=== PATIENT | female | born 1945 | race Caucasian/White ===

== ENCOUNTER 2017-03-05 10:42 | Inpatient (IN) | payer MEDICARE ==
[~2017-03-05] VITALS: Ht 157.5 cm; Wt 52.2 kg
[2017-03-05] MEDS ORDERED: Glucagon 1mg Inj IV ONE (11:00)
[2017-03-05] MEDS ORDERED: Calcium Gluconate 1gm/10ml vial IVP ONE (11:00)
[2017-03-05] MEDS ORDERED: AMLODIPINE BES2.5 MG ORAL (11:01)
[2017-03-05] MEDS ORDERED: ZOLOFT25 MG ORAL (11:01)
[2017-03-05] MEDS ORDERED: CARVEDILOL3.125 MG ORAL (11:01)
[2017-03-05 11:15] VITALS: BP 115/42
--- NOTE | 2017-03-05 11:38 | Diagnostic Imaging Report ---
Indication: Altered mental status Technique: Continuous helical CT scanning of the head was performed without intravenous contrast material. Axial and coronal 5 mm sections were generated. Dose: Total Dose Length Product - DLP [address] Dose Index - CTDIvol(s) 70.38 mGy. Automated exposure control was utilized for dose reduction. Comparison: None Findings: There is prominence of cortical sulci and the ventricular system. Periventricular low density is present. Focal low density is noted in the left lentiform nucleus and hodge radiata. There is no shift of midline structures. No abnormal extra-axial fluid collections are noted. There is no evidence of intracerebral bleeding. No other abnormal high or low density areas are noted within the brain. Impression: Atrophy. Chronic small vessel white matter ischemic change. 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 No definite acute abnormality. The CT scanner at [facility] is accredited by the [employer] and the scans are performed using protocols designed to limit radiation exposure to as low as reasonably achievable to attain images of sufficient resolution adequate for diagnostic evaluation.
[2017-03-05 11:44] LABS: APPEARANCE,URINE CLOUDY; BILIRUBIN, URINE NEGATIVE (NEGATIVE); COLOR,URINE PALE YELLOW; GLUCOSE, URINE (UA) NEGATIVE (NEGATIVE); KETONES,URINE NEGATIVE (NEGATIVE); LEUKOCYTE ESTERASE ,URINE 3+ (NEGATIVE); NITRITE,URINE NEGATIVE (NEGATIVE); PH,URINE 6 (4.5-8.0); PROTEIN,URINE 2+ (NEGATIVE); UROBILINOGEN,URINE NORMAL MG/DL (0.0-1.0)
[2017-03-05 11:52] LABS: EOSINOPHILS % (AUTO) 0.6 % (0.0-3.0); HEMATOCRIT 35.5 % (37.0-47.0); HEMOGLOBIN 11.6 G/DL (12.0-16.0); LYMPHOCYTES % (AUTO) 21.2 % (20.0-45.0); MEAN CORPUSCULAR VOLUME 88 FL (80-99); MONOCYTES % (AUTO) 5.2 % (1.0-10.0); NEUTROPHILS % (AUTO) 71.9 % (45.0-75.0); PLATELET COUNT 263 K/UL (150-450); RED BLOOD COUNT 4.02 M/UL (4.20-5.40); RED CELL DISTRIBUTION WIDTH 12.9 % (11.6-14.8); WHITE BLOOD COUNT 6.2 K/UL (4.8-10.8)
--- NOTE | 2017-03-05 12:00 | Diagnostic Imaging Report ---
Indication: Chest pain Technique: XRAY Chest 1v Comparison: None. Findings: The cardiomediastinal silhouette is normal. The lungs are clear. There is no evidence of pleural fluid. The bones are unremarkable. Impression: Normal chest.
[2017-03-05 12:12] LABS: ANION GAP 7 mmol/L (5-15); BLOOD UREA NITROGEN 22 mg/dL (7-18); CALCIUM 9.2 MG/DL (8.5-10.1); CARBON DIOXIDE 31 MMOL/L (21-32); CHLORIDE 100 MMOL/L (98-107); CREATININE 1.1 MG/DL (0.55-1.30); POTASSIUM 4.1 MMOL/L (3.5-5.1); SODIUM 138 MMOL/L (136-145)
[2017-03-05 12:17] LABS: AMMONIA 13 umol/L (11-32)
[2017-03-05 12:20] LABS: ALANINE AMINOTRANSFERASE 36 U/L (12-78); ALBUMIN 3.5 G/DL (3.4-5.0); ALBUMIN/GLOBULIN RATIO 0.8 (1.0-2.7); ALKALINE PHOSPHATASE 98 U/L (46-116); ASPARTATE AMINO TRANSFERASE 28 U/L (15-37); BILIRUBIN,TOTAL 0.4 MG/DL (0.2-1.0); CKMB 2.5 NG/ML (0.0-3.6); CREATINE KINASE 143 U/L (26-308)
[2017-03-05 12:30] VITALS: BP 135/61
[2017-03-05] MEDS ORDERED: cefTRIAXone 1 GM in NS 55 ML IVPB ONE (13:00)
--- NOTE | 2017-03-05 13:46 | Emergency Room Report ---
History of Present Illness General Chief Complaint: Altered Level of Consciousness Source: EMS Present Illness HPI 72-year-old female presents to ED for evaluation. Patient resides in assisted living facility. Per staff at facility patient appeared more altered and usual this morning. Sluggish to get out of bed. Hypotensive when sitting up. Patient unable to provide any additional history at this time. Patient does know her name. Denies any chest pain shortness of breath. Denies any fevers or chills. No other aggravating relieving factors. Denies any other associated symptoms Allergies: Coded Allergies: No Known Allergies (Unverified , 03/05/17) Patient History Past Medical History: HTN Past Surgical History: none Pertinent Family History: none Social History: Denies: smoking, alcohol use, drug use Now: No Immunizations: UTD Reviewed Nursing Documentation: PMH: Agreed, PSxH: Agreed Nursing Documentation-PMH Past Medical History: No History, Except For Hx Hypertension: Yes Review of Systems All Other Systems: limited Physical Exam Vital Signs Date Time Temp Pulse Resp B/P (MAP) Pulse Ox O2 Delivery O2 Flow Rate FiO2 03/05/17 10:42 48 18 106/66 98 Room Air 03/05/17 11:15 98.5 Sp02 EP Interpretation: reviewed, normal General Appearance: lethargic, thin Head: normocephalic Eyes: bilateral eye normal inspection, bilateral eye PERRL ENT: normal ENT inspection Neck: normal inspection Respiratory: chest non-tender, lungs clear, normal breath sounds, speaking full sentences Cardiovascular #1: no edema, bradycardia Gastrointestinal: normal bowel sounds, non tender, soft, non-distended, no guarding, no rebound Rectal: deferred Genitourinary: no CVA tenderness Musculoskeletal: normal inspection Neurologic: other - lethargic Psychiatric: other - lethargic Skin: normal inspection Lymphatic: normal inspection Medical Decision Making Diagnostic Impression: Primary Impression: Altered level of consciousness Additional Impressions: UTI (urinary tract infection) Qualified Codes: N39.0 - Urinary tract infection, site not specified Bradycardia ER Course Hospital Course 72-year-old female presents ED with altered level of consciousness, weakness Differential diagnoses include: Pneumonia, UTI, sepsis, dehydration, OK/ unstable angina Clinical course Patient placed on stretcher. 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 After initial history and physical, I ordered labs, IV fluids, EKG, chest x-ray , blood cultures, UA. CT Head Labs - electrolytes ok, no leukocytosis, hb/hct stable, UA+ bacteria, Utox negative, ammonia negative EKG - sinus bradycardia, no acute ischemic changes interpreted by me CXR - no acute process CT Head unremarkable Patient is on sertraline, carvedilol and amlodipine. Concern for potential beta shalini or calcium channel shalini overdose given bradycardia and hypotension. Given IV fluids. Given glucagon and calcium Blood pressure improved abx given. Case discussed with Dr Peterson and they agreed to admit patient to their service for further care and support I feel this is a highly complex case requiring extensive working including EKG/ Rhythm strip, Xray/CT/US, Blood/urine lab work, repeat exams while in ED, and administration of strong opiates/narcotics for pain control, admission to hospital or close patient follow up. Diagnosis - ALOC, UTI, bradycardia Patient admitted to telemetry in serious condition Labs Test 03/05/17 11:06 03/05/17 11:28 03/05/17 11:55 White Blood Count 6.2 K/UL (4.8-10.8) Red Blood Count 4.02 M/UL (4.20-5.40) Hemoglobin 11.6 G/DL (12.0-16.0) Hematocrit 35.5 % (37.0-47.0) Mean Corpuscular Volume 88 FL (80-99) Mean Corpuscular Hemoglobin 28.8 PG (27.0-31.0) Mean Corpuscular Hemoglobin Concent 32.7 G/DL (32.0-36.0) Red Cell Distribution Width 12.9 % (11.6-14.8) Platelet Count 263 K/UL (150-450) Mean Platelet Volume 8.0 FL (6.5-10.1) Neutrophils (%) (Auto) 71.9 % (45.0-75.0) Lymphocytes (%) (Auto) 21.2 % (20.0-45.0) Monocytes (%) (Auto) 5.2 % (1.0-10.0) Eosinophils (%) (Auto) 0.6 % (0.0-3.0) Basophils (%) (Auto) 1.0 % (0.0-2.0) Lactic Acid Level 1.10 mmol/L (0.66-2.22) Troponin I 0.000 ng/mL (0.000-0.056) Urine Color Pale yellow Urine Appearance Cloudy Urine pH 6 (4.5-8.0) Urine Specific [place] 1.015 (1.005-1.035) Urine Protein 2+ (NEGATIVE) Urine Glucose (UA) Negative (NEGATIVE) Urine Ketones Negative (NEGATIVE) Urine Occult Blood 3+ (NEGATIVE) Urine Nitrite Negative (NEGATIVE) Urine Bilirubin Negative (NEGATIVE) Urine Urobilinogen Normal MG/DL (0.0-1.0) Urine Leukocyte Esterase 3+ (NEGATIVE) Urine RBC 5-10 /HPF (0 - 2) Urine WBC 15-20 /HPF (0 - 2) Urine Squamous Epithelial Cells Many /LPF (NONE/OCC) Urine Bacteria Few /HPF (NONE) Urine Opiates Screen Negative (NEGATIVE) Urine Barbiturates Screen Negative (NEGATIVE) Phencyclidine (PCP) Screen Negative (NEGATIVE) Urine Amphetamines Screen Negative (NEGATIVE) Urine Benzodiazepines Screen Negative (NEGATIVE) Urine Cocaine Screen Negative (NEGATIVE) Urine Marijuana (THC) Screen Negative (NEGATIVE) Sodium Level 138 MMOL/L (136-145) Potassium Level 4.1 MMOL/L (3.5-5.1) Chloride Level 100 MMOL/L (98-107) Carbon Dioxide Level 31 MMOL/L (21-32) Anion Gap 7 mmol/L (5-15) Blood Urea Nitrogen 22 mg/dL (7-18) Creatinine 1.1 MG/DL (0.55-1.30) Estimat Glomerular Filtration Rate mL/min (>60) Glucose Level 139 MG/DL (74-106) Calcium Level 9.2 MG/DL (8.5-10.1) Total Bilirubin 0.4 MG/DL (0.2-1.0) Aspartate Amino Transf (AST/SGOT) 28 U/L (15-37) Alanine Aminotransferase (ALT/SGPT) 36 U/L (12-78) Alkaline Phosphatase 98 U/L (46-116) Ammonia 13 umol/L (11-32) Total Creatine Kinase 143 U/L (26-308) Creatine Kinase MB 2.5 NG/ML (0.0-3.6) Creatine Kinase MB Relative Index 1.7 Pro-B-Type Natriuretic Peptide 1526 pg/mL (0-125) Total Protein 7.8 G/DL (6.4-8.2) Albumin 3.5 G/DL (3.4-5.0) Globulin 4.3 g/dL Albumin/Globulin Ratio 0.8 (1.0-2.7) Salicylates Level 1.0 ug/mL (2.8-20) Acetaminophen Level < 2 MCG/ML (10-30) Serum Alcohol < 3 mg/dL EKG Diagnostic Results Rate: bradycardiac Rhythm: NSR ST Segments: no acute changes ASA given to the pt in ED: No Rhythm Strip Diag. Results EP Interpretation: yes Rhythm: NSR, no PVC's, no ectopy Chest X-Ray Diagnostic Results Chest X-Ray Diagnostic Results : Chest X-Ray Ordered: Yes # of Views/Limited/Complete: 1 View Indication: Other - AMS EP Interpretation: Yes Interpretation: no consolidation, no effusion, no pneumothorax, no acute cardiopulmonary disease Impression: No acute disease Electronically Signed by: Electronically signed by Alhaji Hawthorne MD CT/MRI/US Diagnostic Results CT/MRI/US Diagnostic Results : Imaging Test Ordered: CT Head Impression no acute process Last Vital Signs Date Time Temp Pulse Resp B/P (MAP) Pulse Ox O2 Delivery O2 Flow Rate FiO2 03/05/17 11:15 98.5 45 14 115/42 98 Room Air Status: improved Disposition: ADMITTED INPATIENT Condition: Serious Referrals: NON PHYSICIAN (PCP) ALHAJI HAWTHORNE M.D. Mar 05, 2017 13:46
[2017-03-05 14:30] VITALS: BP 127/52
[2017-03-05] MEDS: D5NS 1,000 ML IV SCH ×2 (14:58→21:06)
[2017-03-05 17:30] VITALS: BP 125/56
[2017-03-05 18:00] VITALS: BP 138/81
[2017-03-05 18:40] LABS: CHOLESTEROL 183 MG/DL (< 200); HDL CHOLESTEROL 60 MG/DL (40-60); TRIGLYCERIDES 59 MG/DL (30-150)
[2017-03-05 20:00] VITALS: BP 132/74
[2017-03-05] MEDS: Piperacillin/Tazobactam 3.375 GM in D5W 110 ML IVPB SCH (20:17)
[2017-03-05] MEDS: Heparin 5000 units/ml inj SUBQ SCH (20:59)
[2017-03-06] VITALS: BP 143/68
--- NOTE | 2017-03-06 02:15 | History and Physical Report ---
DATE OF ADMISSION: 03/05/2017 CHIEF COMPLAINT: Altered mental status and hypotension. HISTORY OF PRESENT ILLNESS: The patient is a 72-year-old female. She apparently has a history of hypertension. She finally complains of hypotension and altered mental status and unclear what the patient's baseline is. I attempted to contact the patient's family as well as the [facility] and [facility], but there were no answers. In the field, the patient was hypotensive. In the ER, the patient's blood pressure was stable and she was bradycardic with a heart rate of 53 and since then, it is now normalized. She is confused, oriented only to person. She is otherwise unable to provide any history. PAST MEDICAL HISTORY: Unknown. SOCIAL HISTORY: The patient denies tobacco, ethanol, or drugs. She apparently lives in a [facility] [place]. MEDICATIONS: Reviewed. FAMILY HISTORY: Unknown. REVIEW OF SYSTEMS: Unobtainable as the patient is confused. PHYSICAL EXAMINATION: VITAL SIGNS: Temperature 98, blood pressure 130/81, pulse 65, and respirations 16. GENERAL: The patient is well-developed female, in no apparent distress. She is somewhat disheveled, but is awake and follows commands, but she is oriented only to person. HEENT: The patient's pupils are equal, round, and reactive to light. Oropharynx clear. NECK: Supple. HEART: Regular rate and rhythm. LUNGS: Clear. ABDOMEN: Soft, nontender, and nondistended. EXTREMITIES: Without clubbing or cyanosis. The patient moves all four extremities. LABORATORY DATA: UA showed 15 to 20 WBCs. White count was 6, hemoglobin 11. ABG was unremarkable. Sodium 138, potassium 4.1, chloride 100, bicarbonate 31, BUN 22, and creatinine 1.1. Glucose 139, lactic acid was 1.1. Troponin was negative. Natriuretic peptide was 1500. ASSESSMENT: 1. This is an elderly female with complaints of hypotension suspect secondary to her blood pressure medications. She also has a urinary tract infection, hypotension suspect secondary to blood pressure medications and dehydration. 2. Urinary tract infection. 3. Toxic metabolic encephalopathy. PLAN: Intravenous hydration. Hold beta-blockers and blood pressure medications since her blood pressure is more stable. Repeat troponin in the morning. Intravenous antibiotics. Follow up cultures. We will try to get in touch with the patient's board and care to discuss the patient's baseline mental status. Dominic Peterson M.D. DR: SALINA JOB#: [id number] CC:
[2017-03-06] MEDS: Piperacillin/Tazobactam 3.375 GM in D5W 110 ML IVPB SCH ×3 (02:24→17:46)
[2017-03-06 04:00] VITALS: BP 127/70
[2017-03-06 08:00] VITALS: BP 140/76
[2017-03-06 08:12] LABS: ALANINE AMINOTRANSFERASE 30 U/L (12-78); ALBUMIN 3.3 G/DL (3.4-5.0); ALBUMIN/GLOBULIN RATIO 0.8 (1.0-2.7); ALKALINE PHOSPHATASE 90 U/L (46-116); ANION GAP 9 mmol/L (5-15); ASPARTATE AMINO TRANSFERASE 24 U/L (15-37); BILIRUBIN,TOTAL 0.3 MG/DL (0.2-1.0); BLOOD UREA NITROGEN 19 mg/dL (7-18); CALCIUM 8.8 MG/DL (8.5-10.1); CARBON DIOXIDE 26 MMOL/L (21-32); CHLORIDE 105 MMOL/L (98-107); CREATININE 1.1 MG/DL (0.55-1.30); SODIUM 140 MMOL/L (136-145)
[2017-03-06] MEDS: D5NS 1,000 ML IV SCH ×2 (09:51→20:44)
[2017-03-06] MEDS: Heparin 5000 units/ml inj SUBQ SCH ×2 (10:02→21:15)
[2017-03-06 12:00] VITALS: BP 131/71
[2017-03-06 16:00] VITALS: BP 147/79
--- NOTE | 2017-03-06 17:43 | General Progress Note ---
Assessment/Plan Problem List: (1) UTI (urinary tract infection) ICD Codes: N39.0 - Urinary tract infection, site not specified SNOMED: 25383713 Qualifiers: Qualified Codes: N39.0 - Urinary tract infection, site not specified (2) Altered level of consciousness ICD Codes: R40.4 - Transient alteration of awareness SNOMED: 1746265 (3) Bradycardia ICD Codes: R00.1 - Bradycardia, unspecified SNOMED: 37802157 Status: stable, progressing Assessment/Plan ct abd follow up cultures hold bp meds pain rx tele- monitor hr Subjective ROS Limited/Unobtainable: Yes Constitutional: Reports: malaise, weakness HEENT: Reports: no symptoms Cardiovascular: Reports: no symptoms Respiratory: Reports: no symptoms Gastrointestinal/Abdominal: Reports: abdominal pain Genitourinary: Reports: no symptoms Neurologic/Psychiatric: Reports: pre-existing deficit Endocrine: Reports: no symptoms Hematologic/Lymphatic: Reports: no symptoms Allergies: Coded Allergies: No Known Allergies (Unverified , 03/05/17) All Systems: reviewed and negative except above Subjective c/o abd pain earlier. still having some episodes of bradycardia. bp meds on hold. on iv abx. Objective Last 24 Hour Vital Signs Date Time Temp Pulse Resp B/P (MAP) Pulse Ox O2 Delivery O2 Flow Rate FiO2 03/06/17 12:00 96.3 50 19 131/71 100 Nasal Cannula 2.0 03/06/17 12:00 63 03/06/17 08:00 96.8 70 19 140/76 98 Nasal Cannula 2.0 03/06/17 08:00 53 03/06/17 04:00 98.8 95 22 127/70 98 Nasal Cannula 2.0 03/06/17 04:00 64 03/06/17 00:00 98.0 91 22 143/68 98 Nasal Cannula 2.0 03/06/17 00:00 67 03/05/17 20:00 97.7 89 18 132/74 98 Nasal Cannula 2.0 03/05/17 20:00 57 03/05/17 18:00 97.9 65 16 138/81 96 Nasal Cannula 2.0 03/05/17 17:45 98.5 71 19 125/56 95 Nasal Cannula 2.0 Intake and Output 03/05/17 03/06/17 19:00 07:00 Intake Total 0 ml Balance 0 ml Intake Oral 0 ml # Voids 2 3 # Bowel Movements 2 1 Laboratory Tests 03/06/17 05:45: Sodium Level 140, Potassium Level 4.0, Chloride Level 105, Carbon Dioxide Level 26, Anion Gap 9, Blood Urea Nitrogen 19H, Creatinine 1.1, Estimat Glomerular Filtration Rate , Glucose Level 80, Calcium Level 8.8, Total Bilirubin 0.3, Aspartate Amino Transf (AST/SGOT) 24, Alanine Aminotransferase (ALT/SGPT) 30, Alkaline Phosphatase 90, Troponin I 0.000, Total Protein 7.4, Albumin 3.3L, Globulin 4.1, Albumin/Globulin Ratio 0.8L, Thyroid Stimulating Hormone (TSH) 2.607 Height (Feet): 5 Height (Inches): 2.00 Weight (Pounds): 115 General Appearance: WD/WN, alert Neck: supple Respiratory/Chest: chest wall non-tender, lungs clear, normal breath sounds Abdomen: normal bowel sounds, non tender, soft, no organomegaly Edema: no edema noted Arm (L), no edema noted Arm (R), no edema noted Leg (L), no edema noted Leg (R), no edema noted Pedal (L), no edema noted Pedal (R), no edema noted Generalized Neurologic: responsive, disoriented ALBERTO LOZANO Mar 06, 2017 17:43
[2017-03-06 20:00] VITALS: BP 149/74
[2017-03-07] VITALS: BP 150/71
[2017-03-07] MEDS: Piperacillin/Tazobactam 3.375 GM in D5W 110 ML IVPB SCH ×3 (02:19→17:42)
[2017-03-07 04:00] VITALS: BP 147/71
--- NOTE | 2017-03-07 04:30 | Progress Note ---
DATE: 03/06/2017 CARDIOLOGY PROGRESS NOTE SUBJECTIVE: The patient notes abdominal pain. Less shortness of breath. Her heart rate has improved although there is still episodes of bradycardia in the high 40s during the noon today. OBJECTIVE: VITAL SIGNS: Blood pressure 131/71, pulse 50, and respirations 19. NECK: Supple. LUNGS: Clear. CARDIAC: Regular rhythm. Slow rate. Normal S1 and S2 with a fourth heart sound. ABDOMEN: Soft. No guarding. No rebound. No distention. EXTREMITIES: No edema. LABORATORY DATA: Sodium 140, potassium 4, bicarbonate 26, BUN 19, and creatinine 1.1. Troponin negative x2. Albumin 3.3. Urinalysis with 15 to 20 white cells. Toxicology screen is negative. Chest x-ray on admission revealed no acute process. IMPRESSION: 1. Bradycardia now improving and asymptomatic presently. 2. Abdominal pain. 3. Urinary tract infection, resolved. 4. Hypotension. 5. Metabolic encephalopathy. PLAN: 1. Continue hydration. 2. Continue holding antihypertensives including beta-shalini. 3. Empiric antibiotics. 4. Imaging studies of the abdomen. 5. Await final culture results. 6. Follow up laboratory studies. 7. We will adjust therapy based on clinical parameters. Minor Haq M.D. DR: ETHAN JOB#: [id number] CC:
[2017-03-07] MEDS: D5NS 1,000 ML IV SCH ×2 (06:55→16:12)
[2017-03-07 08:00] VITALS: BP 109/64
[2017-03-07] MEDS: Heparin 5000 units/ml inj SUBQ SCH ×2 (09:07→21:22)
--- NOTE | 2017-03-07 10:07 | General Progress Note ---
Assessment/Plan Problem List: (1) UTI (urinary tract infection) ICD Codes: N39.0 - Urinary tract infection, site not specified SNOMED: [id number] Qualifiers: Qualified Codes: N39.0 - Urinary tract infection, site not specified (2) Altered level of consciousness ICD Codes: R40.4 - Transient alteration of awareness SNOMED: 7953737 (3) Bradycardia ICD Codes: R00.1 - Bradycardia, unspecified SNOMED: 04741333 Status: stable Assessment/Plan ct abd follow up cultures hold bp meds pain rx tele- monitor hr Subjective ROS Limited/Unobtainable: No Constitutional: Reports: malaise, weakness HEENT: Reports: no symptoms Cardiovascular: Reports: no symptoms Respiratory: Reports: no symptoms Gastrointestinal/Abdominal: Reports: abdominal pain Genitourinary: Reports: no symptoms Neurologic/Psychiatric: Reports: pre-existing deficit Endocrine: Reports: no symptoms Hematologic/Lymphatic: Reports: no symptoms Allergies: Coded Allergies: No Known Allergies (Unverified , 03/05/17) All Systems: reviewed and negative except above Subjective less abd pain. still having some episodes of bradycardia. bp meds on hold. on iv abx. Objective Last 24 Hour Vital Signs Date Time Temp Pulse Resp B/P (MAP) Pulse Ox O2 Delivery O2 Flow Rate FiO2 03/07/17 08:00 97.3 63 20 109/64 97 03/07/17 04:00 52 03/07/17 04:00 97.9 56 22 147/71 99 03/07/17 00:00 61 03/07/17 00:00 97.9 55 22 150/71 100 03/06/17 20:00 63 03/06/17 20:00 99.1 99 22 149/74 99 Room Air 03/06/17 16:00 98.1 79 20 147/79 97 Nasal Cannula 2.0 03/06/17 16:00 75 03/06/17 12:00 96.3 50 19 131/71 100 Nasal Cannula 2.0 03/06/17 12:00 63 Intake and Output 03/06/17 03/07/17 19:00 07:00 Intake Total 735.5 ml 1342.5 ml Balance 735.5 ml 1342.5 ml Intake Oral 708 ml 260 ml IV Total 27.5 ml 1082.5 ml # Voids 3 1 Height (Feet): 5 Height (Inches): 2.00 Weight (Pounds): 115 ALBERTO LOZANO Mar 07, 2017 10:07
[2017-03-07 10:46] LABS: BASOPHILS % (AUTO) 0.9 % (0.0-2.0); EOSINOPHILS % (AUTO) 1.5 % (0.0-3.0); HEMATOCRIT 34.7 % (37.0-47.0); HEMOGLOBIN 10.8 G/DL (12.0-16.0); LYMPHOCYTES % (AUTO) 26.9 % (20.0-45.0); MEAN CORPUSCULAR VOLUME 89 FL (80-99); MONOCYTES % (AUTO) 9.4 % (1.0-10.0); NEUTROPHILS % (AUTO) 61.4 % (45.0-75.0); PLATELET COUNT 219 K/UL (150-450); RED BLOOD COUNT 3.91 M/UL (4.20-5.40); RED CELL DISTRIBUTION WIDTH 12.8 % (11.6-14.8); WHITE BLOOD COUNT 5.1 K/UL (4.8-10.8)
[2017-03-07 11:10] LABS: ALANINE AMINOTRANSFERASE 27 U/L (12-78); ALBUMIN/GLOBULIN RATIO 0.8 (1.0-2.7); ALKALINE PHOSPHATASE 80 U/L (46-116); ANION GAP 7 mmol/L (5-15); ASPARTATE AMINO TRANSFERASE 20 U/L (15-37); BILIRUBIN,TOTAL 0.3 MG/DL (0.2-1.0); BLOOD UREA NITROGEN 19 mg/dL (7-18); CALCIUM 8.5 MG/DL (8.5-10.1); CARBON DIOXIDE 28 MMOL/L (21-32); CHLORIDE 106 MMOL/L (98-107); CREATININE 1.2 MG/DL (0.55-1.30); POTASSIUM 3.5 MMOL/L (3.5-5.1); SODIUM 141 MMOL/L (136-145)
[2017-03-07 12:00] VITALS: BP 128/69
--- NOTE | 2017-03-07 15:47 | Diagnostic Imaging Report ---
Indication: Abdominal pain Technique: Spiral acquisitions obtained through the abdomen and pelvis. Patient ingested a limited amount of oral contrast No IV contrast utilized, per referring physician request.. Multiplanar reconstructions were generated. Total dose length product 725.2 mGycm. CTDIvol(s) 14.56 mGy. Dose reduction achieved using automated exposure control Comparison: None Findings: There is minimal distention of the rectum by feces. There is considerable retained fecal material. There is an irregular filling defect within the cecum which measures approximately 3.3 x 3.6 x 3.2 cm in diameter. The appendix is normal. Contrast is seen to traverse the entirety of the small bowel and reach the ascending colon. No small bowel distention or small bowel wall thickening. No free or loculated intraperitoneal air or fluid is evident. The distal esophagus, stomach, duodenum are unremarkable. Lack of IV contrast limits assessment of the solid organs. The gallbladder is distended, but no definite gallstones are evident. The liver and bile ducts are unremarkable. The pancreas is unremarkable. The spleen is unremarkable. There is fullness to the left adrenal without discrete mass. The right adrenal is unremarkable. The right kidney is grossly unremarkable. The left kidney demonstrates multiple cysts, including a 2.5 cm exophytic cyst coming off of the upper pole and a second adjacent smaller cysts. A subcentimeter hyperdense low-attenuation lesion comes off the lower pole, too small to characterize but most likely a hyperdense cyst. There is a 12 mm calculus in the left lower pole collecting system. No associated hydronephrosis. There is considerable cortical atrophy of the left kidney, particularly in the lower pole. No retroperitoneal or mesenteric mass or adenopathy. No pelvic mass or adenopathy. Uterus is not identified, presumed surgically absent. There are bilateral breast implants. The included lung bases demonstrate an irregular opacity in the lateral right lower lobe an a similar opacity in the anterolateral right middle lobe. Bilateral basilar scarring is also demonstrated. There is evidence of prior L4 laminectomy and likely prior surgical fusion of the L3-L5 vertebral bodies. Impression: 3.3 x 3.6 x 3.2 cm diameter filling defect within the cecal lumen. While possibly on the basis of retained fecal debris, appearance is worrisome for polypoid neoplastic lesion. Consider further evaluation with colonoscopy if clinically indicated. This finding was discussed by phone with Dr. Peterson at the time of interpretation No definite acute process . Millimeter nonobstructive left lower pole intrarenal calculus Left renal cortical atrophy, probably on the basis of chronic inflammatory changes Irregular opacities in the right lower lobe and right middle lobe. These are nonspecific, suspect postinflammatory in nature but acute infiltrates are also a possibility Postsurgical changes of the lumbar spine and uterus, as described Incidental findings as noted, including left renal cysts, bilateral breast implants The CT scanner at [facility] is accredited by the [employer] and the scans are performed using protocols designed to limit radiation exposure to as low as reasonably achievable to attain images of sufficient resolution adequate for diagnostic evaluation.
[2017-03-07 16:00] VITALS: BP_SYST 128; BP_SYST 132; BP_DIAS 68; BP_DIAS 69
--- NOTE | 2017-03-07 16:54 | Cardiology Report ---
APPROVED REPORT EXAM: Two-dimensional and M-mode echocardiogram with Doppler and color Doppler. INDICATION Angina Pectoris M-Mode DIMENSIONS IVSd1.4 (0.7-1.1cm)Left Atrium (MM)3.6 (1.6-4.0cm) LVDd3.1 (3.5-5.6cm)Aortic Root2.3 (2.0-3.7cm) PWd1.2 (0.7-1.1cm)Aortic Cusp Exc.1.7 (1.5-2.0cm) LVDs2.3 (2.5-4.0cm) PWs1.7 cm Technically difficult study due to poor parasternal acoustical windows and combative patient. Study quality precludes accurate assessment of regional wall motion. Normal left ventricular chamber size, systolic function and wall motion. Left ventricular ejection fraction estimated to be 55 %. Mild left ventricular hypertrophy. No evidence of pericardial effusion. All other cardiac chamber sizes are within normal limits. Mild focal aortic valve sclerosis with adequate cusp excursion. Mildly thickened mitral valve leaflets with normal excursion. Mild mitral annulus and aortic root calcification. Pulmonic valve not well visualized. Normal tricuspid valve structure. IVC measures at 1.7 with physiological collapse. A color flow and spectral Doppler study was performed and revealed: No aortic insufficiency. Trace mitral regurgitation. Mitral diastolic velocities suggest mild left ventricular diastolic dysfunction (Grade I). Trace tricuspid regurgitation. Tricuspid systolic velocities suggests peak right ventricular systolic pressure of 23 mmHg. No pulmonic regurgitation present.
[2017-03-07 20:00] VITALS: BP 128/74
[2017-03-08] VITALS (7 sets, daily range): BP systolic 104–162; BP diastolic 60–88
[2017-03-08] MEDS: Piperacillin/Tazobactam 3.375 GM in D5W 110 ML IVPB SCH ×3 (01:53→18:28)
[2017-03-08] MEDS: D5NS 1,000 ML IV SCH ×3 (02:58→23:13)
--- NOTE | 2017-03-08 06:30 | Progress Note ---
DATE: 03/07/2017 CARDIOLOGY PROGRESS NOTE SUBJECTIVE: The patient still has some episodes of sinus bradycardia, but no pauses. All these episodes have been asymptomatic. OBJECTIVE: VITAL SIGNS: Blood pressure 109/64 to 150/71, heart rate 52-63, respiratory rate 19-22, the patient is afebrile. T-max 99.1. NECK: Supple. LUNGS: Clear. CARDIAC: Regular rhythm. Slow rate. Normal S1, S2. No murmur. ABDOMEN: Soft. No focal tenderness. EXTREMITIES: Without calf tenderness or edema. LABORATORY AND DIAGNOSTIC DATA: Venous duplex scan is negative for DVT. White count 5 and hemoglobin 10.8. Potassium 3.5, albumin 3, BUN 19, creatinine 1.2. TSH 2.6. IMPRESSION: 1. Abdominal pain. 2. Sinus bradycardia exacerbated by increased vagal tone due to abdominal pain. 3. Urinary tract infection, resolved. 4. Hypertension. PLAN: 1. Hydration. 2. Hold antihypertensives pending improvement in blood pressure parameters. 3. Empiric antibiotics. 4. Check CT of the abdomen. 5. Continue cardiac monitoring. Minor Haq M.D. DR: CHAPINCITO JOB#: [id number] CC:
--- NOTE | 2017-03-08 08:12 | General Progress Note ---
Assessment/Plan Problem List: (1) UTI (urinary tract infection) ICD Codes: N39.0 - Urinary tract infection, site not specified SNOMED: 29924534 Qualifiers: Qualified Codes: N39.0 - Urinary tract infection, site not specified (2) Altered level of consciousness ICD Codes: R40.4 - Transient alteration of awareness SNOMED: 0248046 (3) Bradycardia ICD Codes: R00.1 - Bradycardia, unspecified SNOMED: 21800945 Status: stable, progressing Assessment/Plan GI eval check cea bowel regiome follow up cultures hold bp meds pain rx tele- monitor hr Subjective ROS Limited/Unobtainable: No Constitutional: Reports: malaise, weakness HEENT: Reports: no symptoms Cardiovascular: Reports: no symptoms Respiratory: Reports: no symptoms Gastrointestinal/Abdominal: Reports: constipated Genitourinary: Reports: no symptoms Neurologic/Psychiatric: Reports: pre-existing deficit Endocrine: Reports: no symptoms Hematologic/Lymphatic: Reports: no symptoms Allergies: Coded Allergies: No Known Allergies (Unverified , 03/05/17) All Systems: reviewed and negative except above Subjective less abd pain. still having some episodes of bradycardia. bp meds on hold. on iv abx. Ucx mixed martinez. CT with possible cecal mass. less confused. oriented to person and place, Objective Last 24 Hour Vital Signs Date Time Temp Pulse Resp B/P (MAP) Pulse Ox O2 Delivery O2 Flow Rate FiO2 03/08/17 04:00 58 03/08/17 04:00 97.5 59 18 145/88 97 Nasal Cannula 2.0 03/08/17 00:00 97.7 61 18 149/80 97 Nasal Cannula 2.0 03/08/17 00:00 58 03/07/17 20:00 97.7 57 20 128/74 94 Nasal Cannula 03/07/17 20:00 57 03/07/17 16:00 97.1 67 19 132/68 98 03/07/17 16:00 57 03/07/17 16:00 Nasal Cannula 2.0 03/07/17 12:00 97.7 51 19 128/69 98 03/07/17 12:00 Nasal Cannula 2.0 03/07/17 12:00 48 Intake and Output 03/07/17 03/08/17 19:00 07:00 Intake Total 1868.25 ml 100 ml Balance 1868.25 ml 100 ml Intake Oral 670 ml 100 ml IV Total 1198.25 ml # Voids 5 3 # Bowel Movements 4 2 Laboratory Tests 03/07/17 10:15: White Blood Count 5.1, Red Blood Count 3.91L, Hemoglobin 10.8L, Hematocrit 34.7L , Mean Corpuscular Volume 89, Mean Corpuscular Hemoglobin 27.7, Mean Corpuscular Hemoglobin Concent 31.2L, Red Cell Distribution Width 12.8, Platelet Count 219, Mean Platelet Volume 8.0, Neutrophils (%) (Auto) 61.4, Lymphocytes (%) (Auto) 26.9, Monocytes (%) (Auto) 9.4, Eosinophils (%) (Auto) 1.5, Basophils (%) (Auto) 0.9, Sodium Level 141, Potassium Level 3.5, Chloride Level 106, Carbon Dioxide Level 28, Anion Gap 7, Blood Urea Nitrogen 19H, Creatinine 1.2, Estimat Glomerular Filtration Rate , Glucose Level 88, Calcium Level 8.5, Total Bilirubin 0.3, Aspartate Amino Transf (AST/SGOT) 20, Alanine Aminotransferase (ALT/SGPT) 27, Alkaline Phosphatase 80, Total Protein 6.8, Albumin 3.0L, Globulin 3.8, Albumin/Globulin Ratio 0.8L, Lipase 141 Height (Feet): 5 Height (Inches): 2.00 Weight (Pounds): 115 General Appearance: WD/WN, alert Neck: supple Cardiovascular: normal rate, regular rhythm Respiratory/Chest: chest wall non-tender, lungs clear, normal breath sounds, no respiratory distress Abdomen: normal bowel sounds, non tender, soft, no organomegaly Edema: no edema noted Arm (L), no edema noted Arm (R), no edema noted Leg (L), no edema noted Leg (R), no edema noted Pedal (L), no edema noted Pedal (R), no edema noted Generalized ALBERTO LOZANO Mar 08, 2017 08:12
[2017-03-08] MEDS: Docusate 100mg cap ORAL SCH ×2 (09:05→18:28)
[2017-03-08] MEDS: Heparin 5000 units/ml inj SUBQ SCH ×2 (09:08→20:21)
[2017-03-08] MEDS ORDERED: Bisacodyl EC 5mg tab ORAL ONE ×2 (09:30→20:00)
[2017-03-08] MEDS ORDERED: Magnesium Citrate Liq Btl ORAL ONE (10:30)
[2017-03-08] MEDS: Miralax 17gm pkt ORAL SCH (20:19)
--- NOTE | 2017-03-08 20:56 | General Progress Note ---
Assessment/Plan Assessment/Plan GI CONSULT Dictated Will schedule for EGD/Colon tomorrow for evaluation of Anemia and possible Cecal mass Thank you Mine Pearson MD Subjective Allergies: Coded Allergies: No Known Allergies (Unverified , 03/05/17) Objective Last 24 Hour Vital Signs Date Time Temp Pulse Resp B/P (MAP) Pulse Ox O2 Delivery O2 Flow Rate FiO2 03/08/17 20:24 97.6 62 20 124/72 97 Nasal Cannula 03/08/17 16:00 96.3 67 19 104/76 100 Nasal Cannula 2.0 03/08/17 16:00 57 03/08/17 12:00 58 03/08/17 12:00 97.4 61 18 119/60 96 Nasal Cannula 2.0 03/08/17 08:00 42 03/08/17 08:00 97.0 84 18 148/76 92 Nasal Cannula 2.0 03/08/17 04:00 58 03/08/17 04:00 97.5 59 18 145/88 97 Nasal Cannula 2.0 03/08/17 00:00 97.7 61 18 149/80 97 Nasal Cannula 2.0 03/08/17 00:00 58 Intake and Output 03/07/17 03/08/17 19:00 07:00 Intake Total 1868.25 ml 100 ml Balance 1868.25 ml 100 ml Intake Oral 670 ml 100 ml IV Total 1198.25 ml # Voids 5 3 # Bowel Movements 4 2 Height (Feet): 5 Height (Inches): 2.00 Weight (Pounds): 115 MINE PEARSON Mar 08, 2017 20:56
[2017-03-09] VITALS (10 sets, daily range): BP systolic 98–159; BP diastolic 55–80
[2017-03-09] MEDS: Piperacillin/Tazobactam 3.375 GM in D5W 110 ML IVPB SCH ×4 (02:10→21:25)
--- NOTE | 2017-03-09 03:45 | Progress Note ---
DATE: 03/08/2017 CARDIOLOGY PROGRESS NOTE SUBJECTIVE: The patient has an abnormal CAT scan revealing a cecal mass. She has mild abdominal pain. She continues to be on cardiac monitor technician with episodes of bradycardia, sinus rhythm in the 40s at times during the day, but all asymptomatic. Her general heart rate ranges in the 50s. OBJECTIVE: LUNGS: Good breath sounds. HEART: Regular rhythm. Slow rate. Normal S1, S2. ABDOMEN: Soft. EXTREMITIES: No edema. LABORATORY DATA: Labs reviewed. IMPRESSION: 1. Asymptomatic sinus node disease likely exacerbated by increased vagal tone due to abdominal pain. 2. Cecal mass and abdominal pain. 3. Hypertensive heart disease. 4. Urinary tract infection. PLAN: 1. Continue cardiac monitoring. 2. Maintain adequate hydration. 3. Continue to hold antihypertensives. 4. Proceed with diagnostic colonoscopy. 5. Atropine at bedside. 6. Mildly increased risk of symptomatic bradyarrhythmias with increased vagal tone. Minor Haq M.D. DR: JUVENTINO JOB#: [id number] CC:
[2017-03-09] MEDS ORDERED: Sorbitol Solution UD 30ml ORAL ONE ×2 (06:00→09:00)
[2017-03-09] MEDS ORDERED: Simethicone Drops 80mg/1.2ml ORAL ONE (06:00)
--- NOTE | 2017-03-09 08:00 | Consultation ---
DATE OF CONSULTATION: 03/08/2017 NOTE: POOR AUDIO GASTROLOGY CONSULTATION CONSULTING PHYSICIAN: Mine Pearson M.D. CHIEF COMPLAINT: I was asked to see this patient by Dr. Dominic Peterson for evaluation of abnormal CT scan. HISTORY OF PRESENT ILLNESS: The patient is a 72-year-old white woman who has dementia and unable to provide much history, was brought into the hospital due to altered mental status and apparently unstable vital signs. She was admitted to the hospital with tachycardia and low blood pressure . During course of hospitalization, a CT scan was done showing a possible cecal mass, which is approximately 3.5 cm in 3 dimensions. The patient denies any symptoms and does not have much to offer with respect to complaints. In discussion with the patient's son, it does not appear the patient has ever had a colonoscopy or at least not in the last 5 or 10 years. There have been no reports of any abdominal pain or vomiting at home, but here she did have some abdominal pain according to other physician's notes. PAST MEDICAL HISTORY: Otherwise unclear except the patient does have a degree of dementia. SOCIAL HISTORY: The patient does not smoke or drink alcohol. She lives in a [facility]. MEDICATIONS: See chart list for details. REVIEW OF SYSTEMS: Otherwise negative. PHYSICAL EXAMINATION: GENERAL: A debilitated, thin white woman, seen in her room. HEENT: Normocephalic and atraumatic. Sclerae anicteric. Oropharynx clear. Dentition is poor. NECK: Supple. CHEST: Clear to auscultation. CARDIOVASCULAR: Revealed a regular rate. ABDOMEN: Soft with good bowel sounds. EXTREMITIES: Revealed no edema. LABORATORY DATA: Noted. ASSESSMENT: This patient presents with anemia and also with some abnormalities on CT scan, which is suggestive of a mass in the cecum. The patient will need to undergo a colonoscopy to evaluate the mass and we will obtain tissue biopsies for pathologic evaluation. There is a chance whether this may be an artifact. An endoscopy can be done to evaluate the patient for anemia and also, we will review the pathology, which could explain the patient's abdominal pain. Indications, risks, alternatives, and possible complications were explained to the patient's son and informed consent was obtained. RECOMMENDATIONS: Per above discussion and per orders written in the chart. Thank you for asking me to participate in the care of this patient. Mine Pearson M.D. DR: TOMASZ JOB#: [id number] CC: KIMBERLY
--- NOTE | 2017-03-09 08:27 | General Progress Note ---
Assessment/Plan Problem List: (1) UTI (urinary tract infection) ICD Codes: N39.0 - Urinary tract infection, site not specified SNOMED: 56211532 Qualifiers: Qualified Codes: N39.0 - Urinary tract infection, site not specified (2) Altered level of consciousness ICD Codes: R40.4 - Transient alteration of awareness SNOMED: 5577963 (3) Bradycardia ICD Codes: R00.1 - Bradycardia, unspecified SNOMED: 06359695 Status: stable, progressing Assessment/Plan endoscopy follow up cultures hold bp meds pain rx check labs tele- monitor hr Subjective ROS Limited/Unobtainable: No Constitutional: Reports: malaise, weakness HEENT: Reports: no symptoms Cardiovascular: Reports: no symptoms Respiratory: Reports: no symptoms Gastrointestinal/Abdominal: Reports: abdominal pain Genitourinary: Reports: no symptoms Neurologic/Psychiatric: Reports: pre-existing deficit Endocrine: Reports: no symptoms Hematologic/Lymphatic: Reports: no symptoms Allergies: Coded Allergies: No Known Allergies (Unverified , 03/05/17) All Systems: reviewed and negative except above Subjective less abd pain. still having some episodes of bradycardia. bp meds on hold. on iv abx. Ucx mixed martinez. CT with possible cecal mass. GI noted. scheduled for colonoscopy today Objective Last 24 Hour Vital Signs Date Time Temp Pulse Resp B/P (MAP) Pulse Ox O2 Delivery O2 Flow Rate FiO2 03/09/17 04:14 98.4 60 18 135/77 97 Room Air 03/09/17 04:00 48 03/09/17 00:15 96.6 71 18 139/80 98 Room Air 03/09/17 00:00 48 03/08/17 20:24 97.6 62 20 124/72 97 Nasal Cannula 03/08/17 20:00 59 03/08/17 16:00 96.3 67 19 104/76 100 Nasal Cannula 2.0 03/08/17 16:00 57 03/08/17 12:00 58 03/08/17 12:00 97.4 61 18 119/60 96 Nasal Cannula 2.0 Intake and Output 03/08/17 03/09/17 19:00 07:00 Intake Total 1598.0 ml 236 ml Output Total 400 ml Balance 1598.0 ml -164 ml Intake Oral 588 ml 236 ml IV Total 1010.0 ml Output Urine Total 400 ml # Voids 2 # Bowel Movements 8 Height (Feet): 5 Height (Inches): 2.00 Weight (Pounds): 115 Objective General Appearance: WD/WN, alert Neck: supple Cardiovascular: normal rate, regular rhythm Respiratory/Chest: chest wall non-tender, lungs clear, normal breath sounds, no respiratory distress Abdomen: normal bowel sounds, non tender, soft, no organomegaly Edema: no edema noted Arm (L), no edema noted Arm (R), no edema noted Leg (L), no edema noted Leg (R), no edema noted Pedal (L), no edema noted Pedal (R), no edema noted Generalized ALBERTO LOZANO Mar 09, 2017 08:27
[2017-03-09] MEDS: Docusate 100mg cap ORAL SCH ×2 (08:57→17:12)
[2017-03-09] MEDS: D5NS 1,000 ML IV SCH ×2 (08:57→18:40)
[2017-03-09] MEDS: Heparin 5000 units/ml inj SUBQ SCH ×2 (08:58→21:26)
[2017-03-09 10:22] LABS: BASOPHILS % (AUTO) 0.8 % (0.0-2.0); EOSINOPHILS % (AUTO) 2.7 % (0.0-3.0); HEMATOCRIT 34.9 % (37.0-47.0); HEMOGLOBIN 11.1 G/DL (12.0-16.0); LYMPHOCYTES % (AUTO) 21.3 % (20.0-45.0); MEAN CORPUSCULAR VOLUME 89 FL (80-99); MONOCYTES % (AUTO) 8.2 % (1.0-10.0); NEUTROPHILS % (AUTO) 67.1 % (45.0-75.0); PLATELET COUNT 216 K/UL (150-450); RED BLOOD COUNT 3.93 M/UL (4.20-5.40); RED CELL DISTRIBUTION WIDTH 12.8 % (11.6-14.8); WHITE BLOOD COUNT 5.2 K/UL (4.8-10.8)
--- NOTE | 2017-03-09 10:41 | Anethesia Preoperative Eval ---
Anesthesia Pre-op PMH/ROS General Date of Evaluation: Mar 09, 2017 Anesthesiologist: Gonzalo ASA Score: ASA 2 Mallampati Score Class I : Soft palate, uvula, fauces, pillars visible Class II: Soft palate, uvula, fauces visible Class III: Soft palate, base of uvula visible Class IV: Only hard plate visible Mallampati Classification: Class II Surgeon: Lili Diagnosis: GI bleed/?mass Surgical Procedure: EGD and colon Anesthesia History: none Family History: no anesthesia problems Allergies: Coded Allergies: No Known Allergies (Unverified , 03/05/17) Medications: see eMAR Past Medical History Cardiovascular: Reports: HTN, Denies: CAD, ID, valve dz, arrhythmia, other Pulmonary: Denies: asthma, COPD, SHAILA, other Gastrointestinal/Genitourinary: Denies: GERD, CRI, ESRD, other Neurologic/Psychiatric: Reports: dementia, Denies: CVA, depression/anxiety, TIA, other Endocrine: Denies: DM, hypothyroidism, steroids, other HEENT: Denies: cataract (L), cataract (R), glaucoma, [place] (L), [place] (R), other Hematology/Immune: Denies: anemia, DVT, bleeding disorder, other Musculoskeletal/Integumentary: Denies: OA, RA, DJD, DDD, edema, other PSxH Narrative: denies Anesthesia Pre-op Phys. Exam Physician Exam Last Vital Signs Date Time Temp Pulse Resp B/P (MAP) Pulse Ox O2 Delivery O2 Flow Rate FiO2 03/09/17 08:00 97.2 51 20 156/75 100 Room Air 03/08/17 16:00 2.0 Constitutional: NAD Cardiovascular: RRR Respiratory: CTA Airway Exam Mallampati Score: Class II MO: full ROM: full Teeth: intact Anesthesia Pre-op A/P Labs Hematology Test 03/09/17 09:00 White Blood Count 5.2 K/UL (4.8-10.8) Red Blood Count 3.93 M/UL (4.20-5.40) L Hemoglobin 11.1 G/DL (12.0-16.0) L Hematocrit 34.9 % (37.0-47.0) L Mean Corpuscular Volume 89 FL (80-99) Mean Corpuscular Hemoglobin 28.2 PG (27.0-31.0) Mean Corpuscular Hemoglobin Concent 31.8 G/DL (32.0-36.0) L Red Cell Distribution Width 12.8 % (11.6-14.8) Platelet Count 216 K/UL (150-450) Mean Platelet Volume 7.5 FL (6.5-10.1) Neutrophils (%) (Auto) 67.1 % (45.0-75.0) Lymphocytes (%) (Auto) 21.3 % (20.0-45.0) Monocytes (%) (Auto) 8.2 % (1.0-10.0) Eosinophils (%) (Auto) 2.7 % (0.0-3.0) Basophils (%) (Auto) 0.8 % (0.0-2.0) Chemistry Test 03/09/17 09:00 Sodium Level Pending Potassium Level Pending Chloride Level Pending Carbon Dioxide Level Pending Blood Urea Nitrogen Pending Creatinine Pending Estimat Glomerular Filtration Rate Pending Glucose Level Pending Calcium Level Pending Phosphorus Level Pending Magnesium Level Pending Total Bilirubin Pending Aspartate Amino Transf (AST/SGOT) Pending Alanine Aminotransferase (ALT/SGPT) Pending Alkaline Phosphatase Pending Total Protein Pending Albumin Pending Globulin Pending Studies Pre-op Studies: EKG - sr Risk Assessment & Plan Assessment: ASA II Plan: MAC Status Change Before Surgery: No Pre-Antibiotics Drug: N/A JEFERSON SALOMON M.D. Mar 09, 2017 10:41
[2017-03-09 10:42] LABS: PHOSPHORUS 3.4 MG/DL (2.5-4.9)
[2017-03-09 10:44] LABS: ALANINE AMINOTRANSFERASE 31 U/L (12-78); ALBUMIN 3.1 G/DL (3.4-5.0); ALBUMIN/GLOBULIN RATIO 0.8 (1.0-2.7); ALKALINE PHOSPHATASE 75 U/L (46-116); ANION GAP 7 mmol/L (5-15); ASPARTATE AMINO TRANSFERASE 33 U/L (15-37); BILIRUBIN,TOTAL 0.3 MG/DL (0.2-1.0); BLOOD UREA NITROGEN 11 mg/dL (7-18); CALCIUM 8.9 MG/DL (8.5-10.1); CARBON DIOXIDE 26 MMOL/L (21-32); CHLORIDE 110 MMOL/L (98-107); CREATININE 1.1 MG/DL (0.55-1.30); POTASSIUM 3.4 MMOL/L (3.5-5.1); SODIUM 143 MMOL/L (136-145)
[2017-03-09] MEDS ORDERED: Propofol 200mg/20ml IV ONE (11:00)
[2017-03-09] MEDS ORDERED: NS 500ML IV ONE (11:00)
[2017-03-09] MEDS ORDERED: Lidocaine 1% MPF 10mg/ml 5ml ONE (11:00)
--- NOTE | 2017-03-09 11:03 | Immediate Post-Op Evaluation ---
Immediate Post-Op Evalulation Immediate Post-Op Evalulation Procedure: EGD and colonoscopy Date of Evaluation: Mar 09, 2017 Time of Evaluation: 12:17 IV Fluids: 100 Blood Products: 0 Estimated Blood Loss: 0 Urinary Output: 0 Blood Pressure Systolic: 95 Blood Pressure Diastolic: 56 Pulse Rate: 59 Respiratory Rate: 16 O2 Sat by Pulse Oximetry: 100 Temperature (Fahrenheit): 97.7 Pain Score (1-10): 0 Nausea: No Vomiting: No Complications 0 Patient Status: awake, reacts, patent, none Hydration Status: adequate Drug: N/A JEFERSON SALOMON M.D. Mar 09, 2017 11:03
--- NOTE | 2017-03-09 11:21 | General Progress Note ---
Assessment/Plan Assessment/Plan Assessment - Mild anemia - Possible cecal mass, per CT - OBS - mildly low K Recommendations - NPO - IVF - EGD/Colon today - replace K POST PROCEDURE EGD: 2-3 cm Hiatal hernia COLON: normal, no cecal mass (likely stool artifact on CT) Subjective Allergies: Coded Allergies: No Known Allergies (Unverified , 03/05/17) Subjective seen in GI lab no events overnight (++) BM with prep Objective Last 24 Hour Vital Signs Date Time Temp Pulse Resp B/P (MAP) Pulse Ox O2 Delivery O2 Flow Rate FiO2 03/09/17 08:00 97.2 51 20 156/75 100 Room Air 03/09/17 08:00 44 03/09/17 04:14 98.4 60 18 135/77 97 Room Air 03/09/17 04:00 48 03/09/17 00:15 96.6 71 18 139/80 98 Room Air 03/09/17 00:00 48 03/08/17 20:24 97.6 62 20 124/72 97 Nasal Cannula 03/08/17 20:00 59 03/08/17 16:00 96.3 67 19 104/76 100 Nasal Cannula 2.0 03/08/17 16:00 57 03/08/17 12:00 58 03/08/17 12:00 97.4 61 18 119/60 96 Nasal Cannula 2.0 Intake and Output 03/08/17 03/09/17 19:00 07:00 Intake Total 1598.0 ml 236 ml Output Total 400 ml Balance 1598.0 ml -164 ml Intake Oral 588 ml 236 ml IV Total 1010.0 ml Output Urine Total 400 ml # Voids 2 # Bowel Movements 8 Laboratory Tests 03/09/17 09:00: White Blood Count 5.2, Red Blood Count 3.93L, Hemoglobin 11.1L, Hematocrit 34.9L , Mean Corpuscular Volume 89, Mean Corpuscular Hemoglobin 28.2, Mean Corpuscular Hemoglobin Concent 31.8L, Red Cell Distribution Width 12.8, Platelet Count 216, Mean Platelet Volume 7.5, Neutrophils (%) (Auto) 67.1, Lymphocytes (%) (Auto) 21.3, Monocytes (%) (Auto) 8.2, Eosinophils (%) (Auto) 2.7, Basophils (%) (Auto) 0.8, Sodium Level 143, Potassium Level 3.4L, Chloride Level 110H, Carbon Dioxide Level 26, Anion Gap 7, Blood Urea Nitrogen 11, Creatinine 1.1, Estimat Glomerular Filtration Rate , Glucose Level 103, Calcium Level 8.9, Phosphorus Level 3.4, Magnesium Level 1.9, Total Bilirubin 0.3, Aspartate Amino Transf (AST/SGOT) 33, Alanine Aminotransferase (ALT/SGPT) 31, Alkaline Phosphatase 75, Total Protein 6.8, Albumin 3.1L, Globulin 3.7, Albumin/ Globulin Ratio 0.8L Height (Feet): 5 Height (Inches): 2.00 Weight (Pounds): 115 Objective debilitated WW NCAT supple CTA RR soft ND NT no edema OBS ZOË ROMERO Mar 09, 2017 11:21
--- NOTE | 2017-03-09 11:22 | Pre-Procedure Note/Attestation ---
Pre-Procedure Note/Attestation Complete Prior to Procedure Planned Procedure: not applicable Procedure Narrative: EGD/Colon Indications for Procedure Pre-Operative Diagnosis: anemia cecal mass Attestation I attest that I discussed the nature of the procedure; its benefits; risks and complications; and alternatives (and the risks and benefits of such alternatives ), prior to the procedure, with the patient (or the patient's legal herbicide service sales representative). I attest that, if there was a reasonable possibility of needing a blood transfusion, the patient (or the patient's legal herbicide service sales representative) was given the [facility] standardized written summary, pursuant to the Sukh Bryan Blood Safety Act ([place] Health and Safety Code # 1645, as amended). I attest that I re-evaluated the patient just prior to the surgery and that there has been no change in the patient's H&P, except as documented below: ZOË ROMERO Mar 09, 2017 11:22
[2017-03-09] MEDS ORDERED: DiphenhydrAMINE 50mg/ml Inj IVP PRN (12:00)
--- NOTE | 2017-03-09 12:04 | 48 Hour Post Anesthesia Eval ---
Post Anesthesia Evaluation Procedure: EGD and colonoscopy Date of Evaluation: Mar 09, 2017 Airway: patent Nausea: No Vomiting: No Pain Intensity: 0 Hydration Status: adequate Cardiopulmonary Status: at baseline Mental Status/LOC: patient returned to baseline Post-Anesthesia Complications: 0 Follow-up care needed: N/A - furtgher care as per primary team JEFERSON SALOMON M.D. Mar 09, 2017 12:04
[2017-03-09] MEDS: Miralax 17gm pkt ORAL SCH (21:24)
--- NOTE | 2017-03-09 21:49 | Endoscopy Procedure Note ---
Endoscopy Procedure Note Indication for Procedure: anemia Procedures Performed: EGD, colonoscopy Operative Findings/Diagnosis: HH, No evidence of cecal mass Specimen: none Pt Tolerated Procedure Well: Yes Estimated Blood Loss: none Anesthesiologist: see report Anesthesia: MAC Medication Given: see anesthesia record Implant(s) used?: No 50 yrs or older w/o bx or poly: Not Applicable 10yrs. F/U not recommended: Not Applicable If not recommended, why?: ZOË ROMERO Mar 09, 2017 21:49
--- NOTE | 2017-03-09 21:57 | Brief Operative Note ---
Immediate Post Operative Note Operative Note Chief Complaint: Anemia, abnormal CT Pre-op Diagnosis: anemia cecal mass Procedure: EGD, Colon Post-op Diagnosis: HH, normal colon including TI Surgeon: renae Anesthesiologist: see dictation Anesthesia: MAC Specimen: none Complications: none Condition: stable Fluids: recorded Estimated Blood Loss: none Drains: none Implant(s) used?: No ZOË ROMERO Mar 09, 2017 21:57
[2017-03-10] VITALS: BP 147/64
--- NOTE | 2017-03-10 00:15 | Procedure Note ---
DATE OF PROCEDURE: 03/09/2017 GASTROENTEROLOGY PROCEDURE REPORT PROCEDURE: Upper gastrointestinal endoscopy as well as colonoscopy. SURGEON: Mine Pearson M.D. ANESTHESIA: Please see the separate anesthesiologist notes for details. PRE-ENDOSCOPIC DIAGNOSES: 1. Mild anemia. 2. Possible cecal mass based on CT appearance. POST-ENDOSCOPIC DIAGNOSES: 1. A 2 to 3 cm incidental hiatal hernia. 2. No evidence of gastrointestinal tract ulcerations. 3. No evidence of cecal mass. 4. Normal terminal ileum and colonic mucosa. DESCRIPTION OF PROCEDURE: The procedure, its risks, indications, alternatives, and possible complications were explained and informed consent was obtained. The patient was then sedated and a diagnostic upper endoscope was introduced through the oropharynx and advanced to the duodenum. The endoscope was then gradually withdrawn, and the mucosa was examined carefully. Examination of the upper gastrointestinal mucosa revealed an incidental 2 to 3 cm hiatal hernia. The remainder of the upper gastrointestinal examination was unremarkable. The endoscope was removed. The rectal exam was done. The colonoscope was introduced into the rectum and advanced to the cecum without difficulty. The colonoscope was then introduced into the terminal ileum. The terminal ileal mucosa and the colonic mucosa were all unremarkable. More specifically, there was no evidence of cecal mass, and photo documentation was obtained. The patient was sent to recovery in good condition. COMPLICATIONS: None. RECOMMENDATIONS: 1. Resume oral diet. 2. We will follow up lab results. Mine Pearson M.D. DR: FINESSE JOB#: [id number] CC:
[2017-03-10] MEDS: D5NS 1,000 ML IV SCH ×2 (02:23→12:48)
[2017-03-10 04:00] VITALS: BP 142/74
[2017-03-10] MEDS: Piperacillin/Tazobactam 3.375 GM in D5W 110 ML IVPB SCH ×2 (05:42→14:22)
[2017-03-10 07:43] LABS: ANION GAP 6 mmol/L (5-15); BLOOD UREA NITROGEN 8 mg/dL (7-18); CALCIUM 8.5 MG/DL (8.5-10.1); CARBON DIOXIDE 26 MMOL/L (21-32); CHLORIDE 113 MMOL/L (98-107); SODIUM 145 MMOL/L (136-145)
[2017-03-10 08:00] VITALS: BP 149/80
[2017-03-10] MEDS: Docusate 100mg cap ORAL SCH ×2 (09:00→18:00)
[2017-03-10] MEDS ORDERED: COLACE100 MG ORAL (09:11)
[2017-03-10] MEDS ORDERED: MIRALAX17 G2 ORAL (09:11)
[2017-03-10] MEDS ORDERED: PROTONIX40 MG ORAL (09:11)
[2017-03-10] MEDS: Heparin 5000 units/ml inj SUBQ SCH (09:14)
[2017-03-10 12:00] VITALS: BP 145/90
--- NOTE | 2017-03-10 15:50 | Wound Care Consultation ---
Wound Assessment Wound Assessment #1: Wound Number: 1 Wound Present on Admission: Yes New Wound: No Status Change of Wound: No Wound Location Body Site Modif: mid Wound Location Body Site: other - sacrococcygeal area Wound Type: pressure ulcer Josh Test: Does not Josh Pressure Ulcer Stage: Deep Tissue Injury - SDTI Wound Thickness: Full Thickness Wound Length: 4.5 Wound Width: 3.5 Wound Depth: utd Percent of Wound [place]/Red: 100 - deep Wound Drainage Amount: None Wound Drainage Odor: None/Absent Tissue Surrounding Wound: Erythemic Wound General Appearance: Reddened - Deep red Wound Assessment #2: Wound Number: 2 Wound Present on Admission: Yes New Wound: No Status Change of Wound: No Wound Location Body Site: perineal area Wound Type: chemical burn Josh Test: Does not Josh Percent of Wound [place]/Red: 100 Wound Drainage Amount: None Wound Drainage Odor: None/Absent Tissue Surrounding Wound: Erythemic Wound General Appearance: Reddened Wound Comment #1 Sacrococcygeal SDTI pressure ulcer. 100% deep red in color #2 Chemical burn on perineal area Recommendation -Local wound care per protocol -Keep clean and dry -Optimize nutrition -Offload both heels -Heel protector on both heels -Turn and reposition -Low air loss SPR mattress -Assess and f/u accordingly for any changes TRIP COVINGTON RN Mar 10, 2017 15:50
[2017-03-10 16:00] VITALS: BP 151/75
[2017-03-10] MEDS ORDERED: Tubing IV Secondary IV ONE (18:09)
[2017-03-10] MEDS ORDERED: NS 500ML ONE (18:09)
[2017-03-10] MEDS ORDERED: D5 1/2NS 1000ml IV ONE (18:09)
--- NOTE | 2017-03-10 23:30 | Progress Note ---
DATE: 03/10/2017 CARDIOLOGY PROGRESS NOTE SUBJECTIVE: The patient is in no distress. Colonoscopy yesterday revealed no cecal mass or any abnormalities. Upper endoscopy was notable for hiatal hernia. The patient remains with no dizziness, chest pain or shortness of breath. OBJECTIVE: VITAL SIGNS: Blood pressure 145/90, pulse 50, respiratory rate 20, and afebrile. NECK: Supple. LUNGS: Clear. CARDIAC: Regular rhythm. Slow rate. Normal S1 and S2. ABDOMEN: Soft. EXTREMITIES: No edema. IMPRESSION: 1. Abdominal pain likely due to dyspepsia. 2. Sinus bradycardia, asymptomatic. 3. Hypertensive heart disease, controlled off medications. 4. Hiatal hernia. PLAN: Anti-reflux measures. No resumption of carvedilol. Continue to hold amlodipine and observe for blood pressure elevations as outpatient. Stable for outpatient followup from cardiovascular standpoint. Discharge medication regimen reviewed. Minor Haq M.D. DR: ENRICO JOB#: [id number] CC:
--- NOTE | 2017-03-10 23:45 | Progress Note ---
DATE: 03/09/2017 CARDIOLOGY PROGRESS NOTE Late entry 03/09/2017 SUBJECTIVE: The patient remains on monitored bed. Heart rate sinus with rates of 48 to 71, sinus bradycardic episodes are asymptomatic. The patient is scheduled for colonoscopy. OBJECTIVE: VITAL SIGNS: Blood pressure 135/77, pulse 60, respiratory rate 18, and afebrile. NECK: Supple. LUNGS: Clear. CARDIAC: Regular. Slow S1 and S2. No murmur. ABDOMEN: Soft and nontender. EXTREMITIES: No edema. IMPRESSION: 1. Possible cecal mass. 2. Sinus bradycardia. 3. Hypertensive heart disease. 4. Urinary tract infection. PLAN: 1. Continue to hold antihypertensives. 2. No beta-shalini therapy. 3. Proceed with endoscopy. 4. Atropine at bedside. 5. Final recommendations to follow once colonoscopy results are reviewed. Minor Haq M.D. DR: CHAPINCITO JOB#: [id number] CC:
--- NOTE | 2017-03-11 01:30 | Discharge Summary ---
DATE OF ADMISSION: 03/05/2017 DATE OF DISCHARGE: 03/10/2017 ADMISSION DIAGNOSES: 1. Severe bradycardia. 2. Possible sepsis. 3. Urinary tract infection. 4. Toxic metabolic encephalopathy. DISCHARGE DIAGNOSES: 1. Severe bradycardia. 2. Possible sepsis. 3. Urinary tract infection. 4. Toxic metabolic encephalopathy. HOSPITAL COURSE: The patient is a pleasant female with complaints of altered mental status. She was noted to be markedly bradycardic. She was on a beta-shalini and this was discontinued. She was hydrated. She was diagnosed with urinary tract infection and treated with antibiotic therapy. Hospital course was complicated by abdominal pain. She had a CAT scan of the abdomen that initially was concerning for a cecal mass. She underwent colonoscopy that was negative for mass. On discharge, she was doing well. She will be discharged to a [facility] for rehabilitation and then eventually back to [facility]. DISCHARGE MEDICATIONS: Please see discharge medication list for discharge medications. DIET: Regular diet. ACTIVITIES: Ad-ric. FOLLOWUP: The patient will follow up in one to two days at the [facility] facility. Dominic Peterson M.D. DR: ROBERT JOB#: [id number] CC:
--- NOTE | 2017-03-20 14:04 | Cardiology Report ---
APPROVED REPORT EKG Measurement Heart [id number] Sinus bradycardia Otherwise normal ECG
== END 2017-03-10 18:10 | DRG 308 ==
LOC: EDBD 10:42 → EMR 11:00 → 2E 11:32 → EDBEDREQ 15:38
DX: R00.1 Bradycardia, unspecified (principal); G92 Toxic encephalopathy; I95.2 Hypotension due to drugs; I11.9 Hypertensive heart disease without heart failure; N39.0 Urinary tract infection, site not specified; T44.7X5A Adverse effect of beta-adrenoreceptor antagonists, initial encounter; E86.0 Dehydration; T50.995A Adverse effect of other drugs, medicaments and biological substances, initial encounter; Y92.099 Unspecified place in other non-institutional residence as the place of occurrence of the external cause; D64.9 Anemia, unspecified; R10.9 Unspecified abdominal pain; K44.9 Diaphragmatic hernia without obstruction or gangrene
CPT/HCPCS: 36415; 36600; 70450; 71045; 74176; 80048; 80053; 80061; 80307; 80329; 81003; 82140; 82378; 82550; 82553; 82803; 83605; 83690; 83735; 83880; 84100; 84443; 84484; 85025; 87040; 87081; 87086; 93005; 93306; 93970; 94003; 94150; 99285; J8499